=== PATIENT | female | born 1985 | race Caucasian/White ===

== ENCOUNTER 2018-08-09 11:50 | Observation (INO) | payer OTHER ==
[~2018-08-09] VITALS: Ht 171 cm; Wt 92.6 kg
[2018-08-09 12:21] LABS: BASOPHILS % (AUTO) 0.8 % (0.0-2.0); EOSINOPHILS % (AUTO) 0.7 % (1.0-6.0); HEMATOCRIT 35.2 % (36-46); HEMOGLOBIN 11.4 g/dL (12.0-16.0); LYMPHOCYTES # (AUTO) 1.4 K/uL (1.0-4.8); LYMPHOCYTES % (AUTO) 23.4 % (22.0-44.0); MEAN CORPUSCULAR HEMOGLOBIN 27.8 pg (26.0-34.0); MEAN CORPUSCULAR HGB CONC 32.3 G/dL (31.0-37.0); MEAN CORPUSCULAR VOLUME 86 fL (80-100); MONOCYTES # (AUTO) 0.4 K/uL (0.1-1.0); MONOCYTES % (AUTO) 6.6 % (2.0-9.0); NEUTROPHILS # (AUTO) 4.1 K/uL (1.8-7.7); NEUTROPHILS % (AUTO) 68.5 % (40.0-70.0); PLATELET COUNT (AUTO) 145 K/uL (150-450); RED BLOOD CELL COUNT(AUTO) 4.08 MIL/uL (4.00-5.20)
[2018-08-09 12:47] LABS: ALANINE AMINOTRANSFERASE 24 U/L (12-78); ALBUMIN 2.1 g/dL (3.4-5.0); ALKALINE PHOSPHATASE 241 U/L (46-116); ANION GAP 13 mmol/L (8-16); ASPARTATE AMINOTRANSFERASE 30 U/L (15-37); BILIRUBIN,TOTAL 0.3 mg/dL (0.1-1.0); CALCIUM, TOTAL 8.4 mg/dL (8.8-10.5); CARBON DIOXIDE 21 mmol/L (22-29); CHLORIDE 101 mmol/L (98-107); CREATININE 0.62 mg/dL (0.60-1.30); GLOMERULAR FILTR. RATE CALC > 60 mL/min (>60); GLUCOSE,RANDOM 79 mg/dL (70-110); SODIUM SERUM 135 mmol/L (136-145); TOTAL PROTEIN, SERUM 6.5 g/dL (6.4-8.2); URIC ACID 4.7 mg/dL (2.6-7.2)
[2018-08-09 12:55] LABS: PLATELET MORPHOLOGY COMMENT LARGE PLTS PRESENT
[2018-08-09 13:04] LABS: UREA NITROGEN, BLOOD 14 mg/dL (7-18)
[2018-08-09 13:34] VITALS: BP 127/79
[2018-08-09 13:58] LABS: HEMOGLOBIN A1C 7.1 % (4.5-6.2)
[2018-08-09 15:19] LABS: GLUCOMETER DEV NAME(LOC) 4S.; GLUCOSE,POINT OF CARE 48 MG/DL (70-110)
[2018-08-09 15:19] LABS: GLUCOMETER DEV NAME(LOC) 4S.; GLUCOSE,POINT OF CARE 97 MG/DL (70-110)
== END 2018-08-09 16:10 | disposition home or self-care (01) ==
LOC: 4S 11:50
PROVIDERS: ADMIT Obstetrics & Gynecology; ATTEND Obstetrics & Gynecology
DX: O26.893 Other specified pregnancy related conditions, third trimester (principal); R03.0 Elevated blood-pressure reading, without diagnosis of hypertension; O24.013 Pre-existing type 1 diabetes mellitus, in pregnancy, third trimester; E10.9 Type 1 diabetes mellitus without complications; Z79.4 Long term (current) use of insulin; Z3A.37 37 weeks gestation of pregnancy
CPT/HCPCS: 36415; 76805; 80053; 81002; 82962; 83036; 84550; 85025; G0378

== ENCOUNTER 2018-08-12 20:13 | Inpatient (IN) | payer OTHER ==
[~2018-08-12] VITALS: Ht 170.2 cm; Wt 93.0 kg
[2018-08-12] MEDS ORDERED: RINGERS SOLUTION,LACTATED 1,000 ML IV PRN (20:17)
[2018-08-12] MEDS ORDERED: OXYTOCIN 30 UNITS/LACT RINGERS 500 ML IV ONE (20:17)
[2018-08-12] MEDS ORDERED: CITRIC ACID/SODIUM CITRATE 30 ML SOLUTION UDCUP PO PRN (20:30)
[2018-08-12] MEDS ORDERED: METOCLOPRAMIDE HCL 5 MG/ML 2 ML VIAL IVP PRN (20:30)
[2018-08-12] MEDS ORDERED: FentaNYL CITRATE-PF 100 MCG/2 ML VIAL IVP PRN (20:30)
[2018-08-12] MEDS ORDERED: LIDOCAINE/PF 1% 30 ML VIAL INJ PRN (20:30)
[2018-08-12] MEDS ORDERED: METHYLERGONOVINE MALEATE 0.2 MG/ML VIAL IM PRN (20:30)
[2018-08-12] MEDS ORDERED: MINERAL OIL 30 ML UDCUP VG ONE (20:30)
[2018-08-12 20:57] VITALS: BP 136/84
[2018-08-12 21:09] LABS: GLUCOMETER DEV NAME(LOC) 4S.; GLUCOSE,POINT OF CARE 213 MG/DL (70-110)
[2018-08-12 21:12] LABS: BASOPHILS % (AUTO) 1.1 % (0.0-2.0); EOSINOPHILS % (AUTO) 0.6 % (1.0-6.0); HEMATOCRIT 34.6 % (36-46); HEMOGLOBIN 11.1 g/dL (12.0-16.0); LYMPHOCYTES # (AUTO) 1.6 K/uL (1.0-4.8); LYMPHOCYTES % (AUTO) 23.6 % (22.0-44.0); MEAN CORPUSCULAR VOLUME 88 fL (80-100); MONOCYTES # (AUTO) 0.5 K/uL (0.1-1.0); MONOCYTES % (AUTO) 7.6 % (2.0-9.0); NEUTROPHILS # (AUTO) 4.6 K/uL (1.8-7.7); NEUTROPHILS % (AUTO) 67.1 % (40.0-70.0); PLATELET COUNT (AUTO) 124 K/uL (150-450); RED BLOOD CELL COUNT(AUTO) 3.95 MIL/uL (4.00-5.20); RED CELL DISTRIBUTION WIDTH 13.3 % (11.5-14.5)
[2018-08-12 21:50] LABS: PLATELET MORPHOLOGY COMMENT GIANT PLTS PRESENT
[2018-08-12] MEDS ORDERED: DEXTROSE 50%-WATER 25 GM/50 ML SYRINGE IVP PRN (22:00)
[2018-08-12] MEDS ORDERED: INSULIN REGULAR, HUMAN 100 UNITS in SODIUM CHLORIDE 0.9% 99 ML IV PRN ×2 (22:00)
[2018-08-12] MEDS: RINGERS SOLUTION,LACTATED 1,000 ML IV SCH (22:27)
[2018-08-12] MEDS: OXYGEN THERAPY IH SCH (22:27)
[2018-08-12] MEDS ORDERED: DINOPROSTONE 10 MG VAGINAL SUPPOSITORY VG ONE (22:30)
[2018-08-12 23:19] LABS: GLUCOMETER DEV NAME(LOC) 4S.; GLUCOSE,POINT OF CARE 102 MG/DL (70-110)
[2018-08-12 23:48] LABS: ALANINE AMINOTRANSFERASE 24 U/L (12-78); ALBUMIN 2.2 g/dL (3.4-5.0); ALKALINE PHOSPHATASE 270 U/L (46-116); ANION GAP 8 mmol/L (8-16); ASPARTATE AMINOTRANSFERASE 24 U/L (15-37); BILIRUBIN,TOTAL 0.2 mg/dL (0.1-1.0); CALCIUM, TOTAL 8.5 mg/dL (8.8-10.5); CARBON DIOXIDE 26 mmol/L (22-29); CHLORIDE 104 mmol/L (98-107); GLOMERULAR FILTR. RATE CALC > 60 mL/min (>60); GLUCOSE,RANDOM 76 mg/dL (70-110); POTASSIUM 3.8 mmol/L (3.5-5.1); SODIUM SERUM 138 mmol/L (136-145); TOTAL PROTEIN, SERUM 6.8 g/dL (6.4-8.2); UREA NITROGEN, BLOOD 11 mg/dL (7-18); URIC ACID 4.6 mg/dL (2.6-7.2)
[2018-08-13 00:15] LABS: GLUCOMETER DEV NAME(LOC) 4S.; GLUCOSE,POINT OF CARE 90 MG/DL (70-110)
[2018-08-13 02:04] LABS: GLUCOMETER DEV NAME(LOC) 4S.; GLUCOSE,POINT OF CARE 65 MG/DL (70-110)
[2018-08-13 03:15] LABS: GLUCOMETER DEV NAME(LOC) 4S.; GLUCOSE,POINT OF CARE 75 MG/DL (70-110)
[2018-08-13] MEDS ORDERED: ROPIVACAINE HCL/PF 0.2% 100 ML ED ONE (04:20)
[2018-08-13] MEDS: RINGERS SOLUTION,LACTATED 1,000 ML IV SCH (04:34)
[2018-08-13] MEDS ORDERED: ONDANSETRON HCL 4 MG/2 ML VIAL IVP PRN ×2 (05:00→14:45)
[2018-08-13] MEDS ORDERED: DiphenhydrAMINE HCL 50 MG/ML VIAL IVP PRN ×2 (05:00→14:45)
[2018-08-13] MEDS ORDERED: ROPIVACAINE HCL/PF 0.2% 100 ML ED PRN (05:00)
[2018-08-13 06:00] LABS: GLUCOMETER DEV NAME(LOC) 4S.; GLUCOSE,POINT OF CARE 67 MG/DL (70-110)
[2018-08-13] MEDS ORDERED: OXYTOCIN 30 UNITS/LACT RINGERS 500 ML IV PRN (08:05)
[2018-08-13 08:29] LABS: GLUCOMETER DEV NAME(LOC) 4S.; GLUCOSE,POINT OF CARE 69 MG/DL (70-110)
[2018-08-13] MEDS: DEXTROSE 5%-0.45% SODIUM CHL 1,000 ML IV SCH ×2 (09:09→16:36)
[2018-08-13 09:20] LABS: GLUCOMETER DEV NAME(LOC) 4S.; GLUCOSE,POINT OF CARE 76 MG/DL (70-110)
[2018-08-13] MEDS ORDERED: -PHARMACY NOTE- MISC ONE (10:00)
[2018-08-13 10:19] LABS: GLUCOMETER DEV NAME(LOC) 4S.; GLUCOSE,POINT OF CARE 65 MG/DL (70-110)
[2018-08-13 11:29] LABS: GLUCOMETER DEV NAME(LOC) 4S.; GLUCOSE,POINT OF CARE 91 MG/DL (70-110)
[2018-08-13 12:40] LABS: GLUCOMETER DEV NAME(LOC) 4S.; GLUCOSE,POINT OF CARE 77 MG/DL (70-110)
[2018-08-13] MEDS: OXYGEN THERAPY IH SCH (12:55)
[2018-08-13] MEDS ORDERED: LIDOCAINE 2%/EPI 1:200,000/PF 20 ML VIAL ONE (13:46)
[2018-08-13] MEDS ORDERED: ACETAMINOPHEN 1000 MG/ISO-OSM 100 ML IV ONE (13:47)
[2018-08-13] MEDS ORDERED: RINGERS SOLUTION,LACTATED 1,000 ML IV ONE (14:27)
[2018-08-13] MEDS ORDERED: HYDROmorphone 2 MG/ML SYRINGE IVP PRN ×2 (14:45)
[2018-08-13] MEDS ORDERED: FentaNYL CITRATE-PF 100 MCG/2 ML VIAL IVP PRN ×2 (14:45)
[2018-08-13] MEDS ORDERED: NALOXONE HCL 0.4 MG/ML VIAL IVP PRN (14:45)
[2018-08-13] MEDS ORDERED: MEPERIDINE-PF 25 MG/ML VIAL IVP PRN (14:45)
[2018-08-13] MEDS ORDERED: OxyCODONE HCL/ACETAMINOPHEN 10-325 MG TABLET PO PRN (14:45)
[2018-08-13] MEDS ORDERED: GUM MASTIC/STORAX/MSAL/ALCOHOL LIQUID 0.67 ML VIAL TP ONE (15:14)
[2018-08-13 16:39] LABS: GLUCOMETER DEV NAME(LOC) 4S.; GLUCOSE,POINT OF CARE 79 MG/DL (70-110)
[2018-08-13 17:45] LABS: GLUCOMETER DEV NAME(LOC) 4S.; GLUCOSE,POINT OF CARE 136 MG/DL (70-110)
[2018-08-13] MEDS ORDERED: OXYTOCIN 30 UNITS/LACT RINGERS 500 ML IV ONE (18:25)
[2018-08-13] MEDS ORDERED: LANOLIN 7 GM OINTMENT TP PRN (18:30)
[2018-08-13] MEDS ORDERED: OxyCODONE HCL/ACETAMINOPHEN 5-325 MG TABLET PO PRN ×2 (18:30)
[2018-08-13] MEDS ORDERED: INSULIN LISPRO 100 UNITS/ML SQ PRN (18:45)
[2018-08-13] MEDS ORDERED: DEXTROSE 50%-WATER 25 GM/50 ML SYRINGE IVP PRN (18:45)
[2018-08-13] MEDS: ACETAMINOPHEN 500 MG TABLET PO SCH (20:58)
[2018-08-13 22:04] LABS: GLUCOMETER DEV NAME(LOC) 4S.; GLUCOSE,POINT OF CARE 150 MG/DL (70-110)
[2018-08-14 00:38] LABS: GLUCOMETER DEV NAME(LOC) 4S.; GLUCOSE,POINT OF CARE 90 MG/DL (70-110)
[2018-08-14] MEDS: KETOROLAC TROMETHAMINE 15 MG/ML VIAL IVP SCH ×3 (00:40→12:55)
[2018-08-14] MEDS: RINGERS SOLUTION,LACTATED 1,000 ML IV SCH ×2 (03:55→12:52)
[2018-08-14] MEDS ORDERED: MORPHINE SULFATE/PF 0.5 MG/ML 10 ML AMP IVP ONE (05:17)
[2018-08-14] MEDS ORDERED: FentaNYL CITRATE-PF 100 MCG/2 ML VIAL IVP ONE (05:17)
[2018-08-14] MEDS ORDERED: EPHEDrine SULFATE 50 MG/ML VIAL IM ONE (05:18)
[2018-08-14] MEDS ORDERED: 0.9% SODIUM CHLORIDE 10 ML VIAL IVP ONE (05:18)
[2018-08-14] MEDS ORDERED: KETOROLAC TROMETHAMINE 60 MG/2 ML VIAL IM ONE (05:18)
[2018-08-14] MEDS ORDERED: ONDANSETRON HCL 4 MG/2 ML VIAL IVP ONE (05:18)
[2018-08-14 05:54] LABS: GLUCOMETER DEV NAME(LOC) 4S.; GLUCOSE,POINT OF CARE 163 MG/DL (70-110)
[2018-08-14 05:54] LABS: GLUCOMETER DEV NAME(LOC) 4S.; GLUCOSE,POINT OF CARE 40 MG/DL (70-110)
[2018-08-14 05:54] LABS: GLUCOMETER DEV NAME(LOC) 4S.; GLUCOSE,POINT OF CARE 44 MG/DL (70-110)
[2018-08-14] MEDS: ACETAMINOPHEN 500 MG TABLET PO SCH ×2 (06:03→12:46)
[2018-08-14 06:23] LABS: BASOPHILS % (AUTO) 0.5 % (0.0-2.0); EOSINOPHILS % (AUTO) 0.1 % (1.0-6.0); HEMATOCRIT 25.6 % (36-46); HEMOGLOBIN 8.3 g/dL (12.0-16.0); LYMPHOCYTES # (AUTO) 1.4 K/uL (1.0-4.8); LYMPHOCYTES % (AUTO) 11.3 % (22.0-44.0); MEAN CORPUSCULAR HEMOGLOBIN 28.3 pg (26.0-34.0); MEAN CORPUSCULAR HGB CONC 32.3 G/dL (31.0-37.0); MEAN CORPUSCULAR VOLUME 88 fL (80-100); MONOCYTES # (AUTO) 0.8 K/uL (0.1-1.0); MONOCYTES % (AUTO) 6.1 % (2.0-9.0); NEUTROPHILS # (AUTO) 10.3 K/uL (1.8-7.7); RED BLOOD CELL COUNT(AUTO) 2.92 MIL/uL (4.00-5.20); RED CELL DISTRIBUTION WIDTH 13.5 % (11.5-14.5)
[2018-08-14 07:22] LABS: PLATELET COUNT (AUTO)-OB 93 K/uL (150-450)
[2018-08-14 08:24] LABS: GLUCOMETER DEV NAME(LOC) 4S.; GLUCOSE,POINT OF CARE 79 MG/DL (70-110)
[2018-08-14] MEDS: INSULIN LISPRO 100 UNITS/ML SQ SCH ×2 (08:28→17:36)
[2018-08-14] MEDS: MAGNESIUM HYDROXIDE SUSPENSION 30 ML UDCUP PO SCH (08:30)
[2018-08-14 10:54] LABS: GLUCOMETER DEV NAME(LOC) 4S.; GLUCOSE,POINT OF CARE 48 MG/DL (70-110)
[2018-08-14 10:54] LABS: GLUCOMETER DEV NAME(LOC) 4S.; GLUCOSE,POINT OF CARE 90 MG/DL (70-110)
[2018-08-14 11:59] LABS: GLUCOMETER DEV NAME(LOC) 4S.; GLUCOSE,POINT OF CARE 108 MG/DL (70-110)
[2018-08-14 16:34] LABS: GLUCOMETER DEV NAME(LOC) 4S.; GLUCOSE,POINT OF CARE 93 MG/DL (70-110)
[2018-08-14 18:58] LABS: GLUCOMETER DEV NAME(LOC) 4S.; GLUCOSE,POINT OF CARE 188 MG/DL (70-110)
[2018-08-14] MEDS ORDERED: INSULIN GLARGINE,HUM.REC.ANLOG 100 UNITS/ML SQ SCH (21:00)
[2018-08-14] MEDS: IBUPROFEN 800 MG TABLET PO PRN (21:38)
[2018-08-14 23:05] LABS: GLUCOMETER DEV NAME(LOC) 4S.; GLUCOSE,POINT OF CARE 158 MG/DL (70-110)
[2018-08-15] MEDS: MAGNESIUM HYDROXIDE SUSPENSION 30 ML UDCUP PO SCH ×2 (05:12→17:32)
[2018-08-15 06:45] LABS: GLUCOMETER DEV NAME(LOC) 4S.; GLUCOSE,POINT OF CARE 49 MG/DL (70-110)
[2018-08-15] MEDS: IBUPROFEN 800 MG TABLET PO PRN ×2 (06:53→22:14)
[2018-08-15] MEDS: INSULIN LISPRO 100 UNITS/ML SQ SCH ×3 (07:37→18:49)
[2018-08-15] MEDS ORDERED: DEXTROSE 50%-WATER 25 GM/50 ML SYRINGE IVP PRN (07:45)
[2018-08-15 10:44] LABS: GLUCOMETER DEV NAME(LOC) 4S.; GLUCOSE,POINT OF CARE 190 MG/DL (70-110)
[2018-08-15] MEDS: INSULIN LISPRO 100 UNITS/ML SQ PRN ×2 (10:52→21:55)
[2018-08-15 15:04] LABS: GLUCOMETER DEV NAME(LOC) 4S.; GLUCOSE,POINT OF CARE 117 MG/DL (70-110)
[2018-08-15] MEDS ORDERED: INSULIN GLARGINE,HUM.REC.ANLOG 100 UNITS/ML SQ SCH ×2 (21:00)
[2018-08-15 21:44] LABS: GLUCOMETER DEV NAME(LOC) 4S.; GLUCOSE,POINT OF CARE 224 MG/DL (70-110)
[2018-08-16] MEDS ORDERED: PNEUMOCOCCAL VACCINE POLYVALENT 0.5 ML VIAL [PPSV23] IM ONE (00:15)
[2018-08-16 00:59] LABS: GLUCOMETER DEV NAME(LOC) 4S.; GLUCOSE,POINT OF CARE 206 MG/DL (70-110)
[2018-08-16] MEDS: MAGNESIUM HYDROXIDE SUSPENSION 30 ML UDCUP PO SCH (01:02)
[2018-08-16 07:00] LABS: GLUCOMETER DEV NAME(LOC) 4S.; GLUCOSE,POINT OF CARE 144 MG/DL (70-110)
[2018-08-16] MEDS: INSULIN LISPRO 100 UNITS/ML SQ SCH (07:45)
[2018-08-16 08:59] LABS: GLUCOMETER DEV NAME(LOC) 4S.; GLUCOSE,POINT OF CARE 319 MG/DL (70-110)
[2018-08-16] MEDS: IBUPROFEN 800 MG TABLET PO PRN (09:15)
== END 2018-08-16 10:30 | disposition home or self-care (01) | DRG 788 ==
LOC: 4S 20:13 → PREOBSVTOIN 10-06 20:52
PROVIDERS: ADMIT Obstetrics & Gynecology; ATTEND Obstetrics & Gynecology
PROC: 10D00Z1 Extraction of Products of Conception, Low, Open Approach (ICD-10-PCS; principal; 2018-08-13)
DX: O62.0 Primary inadequate contractions (principal); O76 Abnormality in fetal heart rate and rhythm complicating labor and delivery; O36.63X0 Maternal care for excessive fetal growth, third trimester, not applicable or unspecified; O24.92 Unspecified diabetes mellitus in childbirth; O69.82X0 Labor and delivery complicated by other cord entanglement, without compression, not applicable or unspecified; O14.94 Unspecified pre-eclampsia, complicating childbirth; Z3A.37 37 weeks gestation of pregnancy; Z37.0 Single live birth
CPT/HCPCS: 84550; 86850; 86900; 86901; 87081; J0131; J0690; J1815; J1885; J2274; J2405; J2590; J2765; J2795; J3010; J3490; J7050; J7120